=== PATIENT | male | born 1970 | race Caucasian/White ===

== ENCOUNTER 2021-05-01 12:28 | Inpatient (IN) | payer OTHER ==
[~2021-05-01] VITALS: Ht 195.6 cm; Wt 127.0 kg
[2021-05-01 13:38] LABS: HEMOGLOBIN 16.4 gm/dl (14.0-17.5); RED BLOOD COUNT 5.26 M/UL (4.20-5.50); WHITE BLOOD COUNT 8.1 K/UL (4.5-11.0)
[2021-05-01 14:03] LABS: BUN/CREATININE RATIO 13 (0-10)
[2021-05-01] MEDS ORDERED: COZAAR 50MG TAB50 MG GT (17:36)
[2021-05-01] MEDS ORDERED: PROTONIX 40 MG40 M1 PO (17:37)
[2021-05-01] MEDS ORDERED: TIZANIDINE HCL4 MG PO (17:37)
[2021-05-01] MEDS ORDERED: OXYCODONE-ACET1 EACH PO (17:37)
[2021-05-01] MEDS ORDERED: TESTOSTERO200 MG/1 M IM (17:38)
[2021-05-01] MEDS ORDERED: CYANOCOBAL1000 MCG/1 INJ (17:39)
[2021-05-01 18:14] LABS: MONONUCLEAR CELLS 91 (75-100); POLYMORPHONUCLEAR % 9 (0-25); RBC (AUTOMATED) 900 (0-100000); WBC (AUTOMATED) 814 (0-500)
[2021-05-01 18:28] LABS: AMYLASE, BODY FLUID 21 U/L; LDH, BODY FLUID 109 U/L; TOTAL PROTEIN, BODY FLUID 1.7 gm/dL
[2021-05-01] MEDS ORDERED: TYLENOL EXTRA500 MG PO (20:37)
[2021-05-02 07:56] LABS: HEMOGLOBIN 13.8 gm/dl (14.0-17.5); RED BLOOD COUNT 4.67 M/UL (4.20-5.50); WHITE BLOOD COUNT 5.4 K/UL (4.5-11.0)
[2021-05-02 08:14] LABS: BUN/CREATININE RATIO 9 (0-10)
[2021-05-03 08:12] LABS: HBSAG SCREEN Negative (Negative); HEP B CORE AB, TOT Negative (Negative); HEP C VIRUS AB <0.1 (0.0-0.9)
== END 2021-05-02 11:16 | disposition home or self-care (01) | DRG 187 ==
LOC: ER1 12:28 → CDU 16:16 → MED SURG 4 18:49
PROVIDERS: Emergency Medicine; ADMIT Internal Medicine
PROC: 0W993ZX Drainage of Right Pleural Cavity, Percutaneous Approach, Diagnostic (ICD-10-PCS; principal; 2021-05-01)
DX: J90 Pleural effusion, not elsewhere classified (principal); J98.11 Atelectasis; R18.8 Other ascites; F11.20 Opioid dependence, uncomplicated; J94.8 Other specified pleural conditions; K76.6 Portal hypertension; Z20.822 Contact with and (suspected) exposure to COVID-19; I10 Essential (primary) hypertension; K75.81 Nonalcoholic steatohepatitis (NASH); E66.01 Morbid (severe) obesity due to excess calories; G89.29 Other chronic pain; M51.36 Other intervertebral disc degeneration, lumbar region; D75.1 Secondary polycythemia; F17.210 Nicotine dependence, cigarettes, uncomplicated; Z82.49 Family history of ischemic heart disease and other diseases of the circulatory system; Z68.33 Body mass index [BMI] 33.0-33.9, adult
CPT/HCPCS: 32551; 36415; 71045; 71046; 80053; 81001; 82150; 82550; 82553; 82945; 83605; 83615; 83690; 83874; 83880; 84157; 84484; 85025; 85610; 85730; 86704; 86706; 86708; 86803; 87015; 87040; 87116; 87206; 87340; 89051; 93005; 96374; 96375; 99285; J1650; J2270; J2405; Q9967

== ENCOUNTER → 2021-05-16 | Outpatient (CLI) | payer OTHER ==
[~2021-05-16] MED LIST: COZAAR 50MG TAB50 MG GT; CYANOCOBAL1000 MCG/1 INJ; OXYCODONE-ACET1 EACH PO; PROTONIX 40 MG40 M1 PO; TESTOSTERO200 MG/1 M IM; TIZANIDINE HCL4 MG PO; TYLENOL EXTRA500 MG PO
== END ==
LOC: EXRD 10:32
DX: J90 Pleural effusion, not elsewhere classified (principal)
CPT/HCPCS: 71046

== ENCOUNTER 2021-10-30 14:59 | Emergency (ER) | payer OTHER ==
[2021-10-30] MEDS ORDERED: AMOX TR-K CLV1 EAC4 PO (16:24)
== END 2021-10-30 16:35 | disposition home or self-care (01) ==
LOC: ER1 14:59
DX: L02.214 Cutaneous abscess of groin (principal); F17.200 Nicotine dependence, unspecified, uncomplicated; Z87.2 Personal history of diseases of the skin and subcutaneous tissue
CPT/HCPCS: 99283

== ENCOUNTER → 2021-11-06 | Day surgery (SDC) | payer OTHER ==
[~2021-11-06] MED LIST changes: +AMOX TR-K CLV1 EAC4 PO; +LASIX40 MG PO; +SPIRONOLACTONE50 MG PO
== END | disposition home or self-care (01) ==
LOC: OR 07:37
DX: L72.0 Epidermal cyst (principal); I10 Essential (primary) hypertension; K74.60 Unspecified cirrhosis of liver; F17.210 Nicotine dependence, cigarettes, uncomplicated; Z79.899 Other long term (current) drug therapy; Z72.89 Other problems related to lifestyle
CPT/HCPCS: J0690; J1170; J2250; J3010; J7120

== ENCOUNTER → 2021-12-30 | Outpatient (CLI) | payer OTHER | LOC: KOH-I 12:19 | DX: E11.9 Type 2 diabetes mellitus without complications (principal); I10 Essential (primary) hypertension; E29.1 Testicular hypofunction; K74.60 Unspecified cirrhosis of liver; F31.9 Bipolar disorder, unspecified; M25.562 Pain in left knee; M17.12 Unilateral primary osteoarthritis, left knee | CPT/HCPCS: 73562 ==